=== PATIENT | female | born 1965 | race Caucasian/White ===

== ENCOUNTER → 2018-09-24 | Outpatient (CLI) | payer MEDICARE ==
[~2018-09-24] MED LIST: BACL-19 PO; ESCI20TA10 PO; ESOM40CA PO; GLIP10TA13 PO; INSU100I29 SQ; LEVO750T26 PO; LORA10TA62 PO; LORA1TAB PO; LUBI24CA7 PO; METF10002 PO; METO5TAB57 PO; NORT50CA52 PO; ONDA8TAB12 PO; OXYC-306 PO; OXYM10TA19 PO; SUMA100T3 PO; TIZA4CAP PO; TRAM50TA2 PO; TRAZ-137 PO
== END | disposition home or self-care (01) ==
LOC: CFH 13:59
DX: Z12.31 Encounter for screening mammogram for malignant neoplasm of breast (principal); N64.89 Other specified disorders of breast
CPT/HCPCS: 77067

== ENCOUNTER 2018-10-12 12:00 | Outpatient (CLI) | payer MEDICARE | END 2018-10-12 23:59 | disposition home or self-care (01) | LOC: CFH 12:00 | PROVIDERS: ATTEND Family Medicine | DX: N63.0 Unspecified lump in unspecified breast (principal) | CPT/HCPCS: 77065; G0279 ==

== ENCOUNTER 2019-01-31 06:46 | Outpatient (CLI) | payer MEDICARE, MEDICAID ==
[2019-01-31] MEDS ORDERED: FENTANYL PF 100 MCG/2ML ONE (07:46)
[2019-01-31] MEDS ORDERED: MIDAZOLAM 1 MG/ML, 5ML ONE (07:46)
[2019-01-31] MEDS ORDERED: GADOTERATE 10 MMOL/20 ML SYR ONE (09:01)
== END 2019-01-31 23:59 | disposition home or self-care (01) ==
LOC: RAD 06:46
PROVIDERS: ATTEND Nurse Practitioner
DX: M12.88 Other specific arthropathies, not elsewhere classified, other specified site (principal); M89.38 Hypertrophy of bone, other site; M25.78 Osteophyte, vertebrae; J39.2 Other diseases of pharynx; E11.9 Type 2 diabetes mellitus without complications
CPT/HCPCS: 70553; 72120; 72148; 99156; 99157; A9575; J2250; J3010

== ENCOUNTER → 2020-02-06 | Outpatient (CLI) | payer MEDICARE, MEDICAID ==
[~2020-02-06] MED LIST changes: -TRAZ-137 PO; +TRAZ-175 PO
== END | disposition home or self-care (01) ==
LOC: CFH 10:21
PROVIDERS: ATTEND Nurse Practitioner
DX: Z12.31 Encounter for screening mammogram for malignant neoplasm of breast (principal)
CPT/HCPCS: 77063; 77067